=== PATIENT | male | born 1975 | race Caucasian/White ===

== ENCOUNTER 2017-03-03 16:10 | Emergency (ER) | payer MEDICAID ==
[~2017-03-03] VITALS: Ht 180.3 cm; Wt 81.6 kg
[2017-03-03] MEDS ORDERED: FLEXERIL10 MG PO (16:24)
--- NOTE | 2017-03-03 16:25 | Emergency Room Report ---
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 N Clinical Suspician of Infection? N Mental Status: 1 - Regular (Normal Baseline) Sepsis Risk:Low Sepsis Risk Have you (or family members/close friends) recently traveled outside the [place]? N If Yes, where/when: Have you had exposure to infectious disease within the past month? TB? Other? Specify: Source patient, RN notes reviewed, RN/MD Exam Limitations no limitations Comment This is a 42-year-old gentleman arriving to the emergency room by POV complaining with neck pain after wrestling with his last night. Patient denies any neurological deficit, his pain is worse with turning his head towards the RIGHT side only. ALLERGIES Coded Allergies: acetaminophen (From TYLENOL) (Mild, 03/03/17) aspirin (Mild, 03/03/17) ibuprofen (Mild, 03/03/17) History Medical History General More? No Immunization Hx Ped.Immunizations UTD Yes DT/Tetanus 1-4 Years Ago Surgical Hx Previous Surgery?N Social History Smoking Hx Smoker: Never Smoker Tobacco: No Are you/the child exposed to second-hand smoke: No Review of Systems All Other Systems Reviewed and Negative Musculoskeletal neck pain (right side neck) Physical Exam Vital Signs Vital Signs Date Time Temp Pulse Resp B/P Pulse O2 O2 Flow FiO2 Ox Delivery Rate 03/03 1642 98.0 108 18 147/95 98 03/03 1618 98.0 108 18 147/95 98 General Appearance normal appearance, WD/WN, no apparent distress Neck normal inspection, supple, full range of motion, tender lateral (right) Respiratory Status Yes: trachea midline, chest symmetrical, non tender chest. No: respiratory distress. Lung Sounds bilateral: normal breath sounds, lungs clear. 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 No Comment Patient appears in minimal distress, he is medically stable, advised patient to take muscle relaxants, and follow-up with PCP within 2 days if any further concerns/symptoms. Results/Orders Current Medication Orders Sig/Gabriel Start time Last Medication Dose Route Stop Time Status Admin Cyclobenzaprine HCl 10 MG ONCE ONE 03/03 1630 CAN PO 03/03 1631 Departure Departure Time of Disposition 1622 Disposition DC Home or Self Care(routine) Clinical Impression Primary Impression: Cervical sprain Qualifiers: Encounter type: initial encounter Qualified Code: S13.9XXA - Sprain of joints and ligaments of unspecified parts of neck, initial encounter Condition STABLE Referrals [facility]: Tomorrow-Call Office if not better Patient Instructions DI for Neck Pain Additional Instructions Please take the medications prescribed as directed, follow up with PCP in the morning if not better. Discharge Counseling Counseled pt/family regarding diagnosis, medications/RX, home care, follow up needs Comment Please take the medications prescribed as directed, follow up with PCP in the morning if not better Prescriptions Current Visit Scripts Cyclobenzaprine Hcl (Flexeril) 10 MG PO TID #30 TAB ED Critical Care Critical Care No at 1904
[2017-03-03 16:42] VITALS: BP 147/95
== END 2017-03-03 16:43 | disposition home or self-care (01) ==
LOC: ER 16:10
DX: S13.9XXA Sprain of joints and ligaments of unspecified parts of neck, initial encounter (principal); Y93.72 Activity, wrestling; Y92.009 Unspecified place in unspecified non-institutional (private) residence as the place of occurrence of the external cause